=== PATIENT | male | born 1955 | race Caucasian/White ===

== ENCOUNTER 2018-10-23 02:45 | Inpatient (IN) | payer BC ==
[~2018-10-23] VITALS: Ht 175.3 cm; Wt 60.3 kg
[2018-10-23] VITALS (16 sets, daily range): BP systolic 129–174; BP diastolic 76–111
[~2018-10-23 02:45] MED LIST: AMPH30TA10 PO; BUPR-472 PO; BUPR-474 PO; CHOL200018 PO; OLAN10TA25 PO; POTA99TA6 PO
[2018-10-23] MEDS ORDERED: ACETAMINOPHEN 500 MG TAB PO ONE (06:00)
[2018-10-23] MEDS ORDERED: LIDOCAINE/SOD BICARB 8.4% SYR ID ONE (06:00)
[2018-10-23] MEDS ORDERED: ceFAZolin(*) 2GM/D5W 50ML 50 ML IVPB ONE (06:00)
[2018-10-23] MEDS ORDERED: NORMOSOL R SOLN(*) 1000 ML BAG 1,000 ML IV PRN (06:00)
[2018-10-23] MEDS ORDERED: MIDAZOLAM 2 MG/2 ML VIAL IVP PRN (06:00)
[2018-10-23] MEDS ORDERED: FAMOTIDINE 20 MG TAB PO ONE (06:00)
[2018-10-23] MEDS ORDERED: PREGABALIN 150 MG CAPSULE PO ONE (06:00)
[2018-10-23] MEDS ORDERED: DEXAMETHASONE SOD PHOS 10MG/ML ONE (06:15)
[2018-10-23] MEDS ORDERED: BACITRACIN OINT 15 GM TUBE TP ONE (06:15)
[2018-10-23] MEDS ORDERED: NS 0.9% 20 ML SDV 40 ML ONE (06:34)
[2018-10-23] MEDS ORDERED: PROPOFOL(*)1000 MG/100 ML VIAL 100 ML ONE (06:35)
[2018-10-23] MEDS ORDERED: REMIFENTANIL HCL 1 MG VIAL ONE (06:35)
[2018-10-23] MEDS ORDERED: NS(*) 0.9% 500 ML BAG 500 ML ONE (06:39)
[2018-10-23] MEDS ORDERED: fentaNYL CITR 250 MCG/5 ML AMP ONE (06:43)
[2018-10-23] MEDS ORDERED: LIDOCAINE MPF 1% 5 ML VIAL ONE (06:44)
[2018-10-23] MEDS ORDERED: KETAMINE HCL 200 MG/20 ML MDV ONE (06:44)
[2018-10-23] MEDS ORDERED: ONDANSETRON 4 MG/2 ML VIAL ONE (06:44)
[2018-10-23] MEDS ORDERED: ePHEDrine 25 MG/5 ML DISP.SYR IVP ONE (08:02)
[2018-10-23] MEDS ORDERED: NS 0.9% 20 ML SDV 20 ML ONE (08:08)
[2018-10-23] MEDS ORDERED: ceFAZolin 1 GM VIAL ONE (08:12)
[2018-10-23] MEDS ORDERED: VASOPRESSIN 20 UNIT/ML VIAL ONE (08:16)
[2018-10-23] MEDS ORDERED: PROPOFOL EMUL(*) 10MG/ML 20 ML 20 ML ONE (08:28)
[2018-10-23] MEDS ORDERED: EPINEPHrine HCL 1 MG/ML AMP ONE (08:43)
[2018-10-23] MEDS ORDERED: VANCOMYCIN 1 GM VIAL ONE (09:51)
[2018-10-23] MEDS ORDERED: fentaNYL CITR 100 MCG/2 ML AMP ONE (11:06)
--- NOTE | 2018-10-23 11:07 | RADIOLOGY IMAGING REPORT ---
FACILITY: [facility] - [place] PATIENT NAME: iRgo Naidu : 1955 MR: [id number] V: [id number] EXAM DATE: ORDERING PHYSICIAN: MARLON BRICE TECHNOLOGIST: Location: [facility] [place] Patient: Rigo Naidu : 1955 Visit/Account:[id number] Date of Sevice: 10/23/2018 CERVICAL SPINE 2 OR 3 VIEW Indication: POSTERIOR CERVICAL FUSION C3-T1 Comparison: None. Findings: Intraoperative images from a cervical spine surgery are available. Final image demonstrate s posterior instrumentation and fusion hardware from C3 through C7. IMPRESSION: Postoperative changes with cervical fusion hardware identified. Report Dictated By: Catracho Daly at 10/23/2018 10:58 AM Report E-Signed By: Catracho Daly at 10/23/2018 10:59 AM WSN:[id number]
[2018-10-23] MEDS ORDERED: MAGNESIUM HYDROXIDE* 30ML UDCP PO PRN (11:10)
[2018-10-23] MEDS ORDERED: ONDANSETRON 4 MG/2 ML VIAL IVP PRN (11:10)
[2018-10-23] MEDS ORDERED: ACETAMINOPHEN(*)1000 MG/100 ML 100 ML IVPB PRN (11:10)
[2018-10-23] MEDS ORDERED: BISACODYL 10 MG SUPP PR PRN (11:10)
[2018-10-23] MEDS ORDERED: FLUSH 10 ML SYR IVP PRN (11:10)
[2018-10-23] MEDS ORDERED: ACETAMINOPHEN 500 MG TAB PO PRN (11:10)
[2018-10-23] MEDS ORDERED: BENZOCAINE/MENTHOL 1 EACH LOZG PO PRN (11:10)
[2018-10-23] MEDS ORDERED: LR(*) 1000 ML BAG 1,000 ML IV PRN (11:10)
[2018-10-23] MEDS ORDERED: diphenhydrAMINE 25 MG CAP PO PRN (11:10)
[2018-10-23] MEDS ORDERED: DIAZEPAM 5 MG TAB PO PRN (11:10)
--- NOTE | 2018-10-23 11:23 | OPERATIVE REPORT 1 ---
EVENT DATE: October 23, 2018 SURGEON: Rashard Grove MD ANESTHESIOLOGIST: Aric Edwards MD ANESTHESIA: General endotracheal. MATERIALS PLANNING ANALYST: Marcos Liu PA-C and Ji Quiroz PA-C. 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 PROCEDURE PERFORMED C3-C6 cervical laminectomy with C3-C7 posterior lateral instrumented fusion. IV FLUIDS 2100 cc's. ESTIMATED BLOOD LOSS 60 cc's. IMPLANTS USED 1. 3.5 mm x 14 mm lateral mass screws from [employer] x10. 2. Connecting rods from [employer] x2. 3. Locking caps from [employer] x10. SPECIMENS None. DRAINS 7 mm flat Alen-Harley drain to the posterior neck. COMPLICATIONS None. DISPOSITION Post-Anesthesia Care Unit. INDICATIONS Mr. Naidu is a 62-year old gentleman who presented to my clinic last year with a complaint of low back and right hip and leg pain. At the time of our evaluation of him, he was found to have symptoms consistent with cervical myelopathy including sustained clonus on the right and 8 or more beats of clonus on the left, strongly positive Rayo's signs bilaterally and hyperactive deep tendon reflexes. He was, therefore, sent for a cervical spine MRI which, indeed, revealed severe compression of the spinal cord, C3-C4 and C4-C5 with an anterolisthesis at C4-5 and thick ligamentum flavum all the way down to the C6- C7 level. At this point in time, we altered our treatment plan, which originally was going to be directed at this lumbar problems and I explained to him that it was much more important to take care of his myelopathy first. He voiced an understanding. We, therefore, scheduled him for the C3-C6 laminectomy and C3-C7 posterior lateral instrumented fusion. Prior to surgery, I explained in detail to the patient the possible risks of surgery. These risks include bleeding, infection, damage to surrounding structures, nerve root injury, spinal cord injury, spinal fluid leak, meningitis, , blindness, sexual dysfunction, autonomic nervous system dysfunction and other unforeseen medical and surgical complications. An understanding that in general spinal surgery is more predictive at improving extremity discomfort than axial spine pain was stressed and more importantly in this case it was stressed that the purpose of the procedure was to prevent step- multani deterioration of his myelopathy rather than giving him improvement of his motor function. DESCRIPTION OF PROCEDURE On the date of surgery, the patient was met in the preoperative hold area and all questions were answered. The operative site was identified and marked by myself. The patient was brought in good condition to the operating room and after initiation of anesthesia, placement of an arterial line and baseline neurophysiologic monitoring, he was placed in a Cortney headrest and turned into the prone position on an OR table. All bony protuberances and soft tissues were well padded in the standard fashion. Care was taken to maintain appropriate perfusion pressures during anesthesia. Preoperative antibiotics were administered according to the appropriate timing schedule. At the conclusion of the procedure, sponge and needle counts were correct x2. Once we turned the patient into the prone position, repeat motors were run by our neurophysiologic windows deployment technician. There was no change in neurophysiologic monitoring with positioning. A final time-out was undertaken by members of the operating team to confirm correct patient, correct levels and correct surgery. The patient was then prepped and draped in the standard sterile orthopedic fashion and a vertical incision was made in the posterior neck overlying the intended surgical levels. Sharp dissection was carried out down to the ligamentum nuchae, which was divided down the midline. Soft tissues were elevated off the posterior elements in a subperiosteal manner and a lateral radiograph was obtained to confirm appropriate spinal levels. I cleared soft tissues all the way out to the lateral aspect of the lateral masses, exposing lateral masses of C3, C4, C5, C6 and C7. We then used a 2 mm ball-tipped, high-speed bur to create general passenger agent holes in a modified Magerl technique using an up and out trajectory to avoid damage to the vertebral artery. These holes were then drilled with a 14 mm drill. Attention was then turned to the laminectomy portion of the procedure. A rongeur was used to remove the inner spinous ligaments between C2 and C3 and between C6 and C7. A high-speed bur was then used to create troughs bilaterally at the junction of the lateral masses and the base of the lamina. Towel clamps were attached to the C3 and C6 spinous processes and upward pressure was applied as the troughs were created. Once all bony resection was completed, the spinous processes were gently elevated and removed in one piece. This provided significant decompression of the cord and dural pulsations could be visualized. #1 and #2 Kerrison rongeurs were used to further complete the laminectomy and ensure no focal compression on the cord. The superior aspect of the C7 lamina was undercut and all redundant ligamentum flavum removed. The nerve hook was used to check the lateral gutters and ensure that no ongoing bony compression was present. 3.5 mm x 14 mm screws were then placed bilaterally at C3, C4, C5, C6 and C7 in the previously prepared holes. A petra was then cut to the appropriate length and contoured appropriately. The petra was placed in the tulips bilaterally and while I held the Cortney headrest, our anesthesia colleague then loosened the Cortney and I was able to bring the patient into significant lordosis and apply the remainder of the caps in the lateral mass screws. These were tightened down and then finally tightened. The head was then flexed again to allow for appropriate placement of bone graft. The wound was irrigated with copious sterile saline solution and a high-speed bur was then used to decorticate the lateral masses out lateral to the lateral mass screws. A combination of milled local bone and demineralized bone matrix was then packed into those lateral gutters overlying the lateral masses and packed into the decorticated facets as well. A 7 mm flat Alen-Harley drain was then placed and the wound was closed in layers using interrupted sutures for the ligamentum nuchae, inverted interrupted sutures for the subcutaneous tissue and then a running locking skin stitch. Sponge and needle counts were correct x2. POSTOPERATIVE CARE PLAN Mr. Naidu will remain in the hospital until he has a decrease in drainage and we can pull his drain. Once he meets discharge criteria and passes physical therapy, he will be discharged home with instructions to follow up in two weeks for examination and wound check. BRITTNY
[2018-10-23] MEDS: oxyCODONE HCL 5 MG CAP PO PRN ×2 (12:37→19:01)
[2018-10-23] MEDS: HYDROmorphone HCL 2 MG/ML SDV IVP PRN ×2 (13:02→20:02)
[2018-10-23] MEDS: ceFAZolin(*) 2GM/D5W 50ML 50 ML IVPB SCH ×2 (16:43→23:32)
--- NOTE | 2018-10-23 16:51 | NUR ---
Physical Therapy Impression PT eval complete. Pt able to perform bed mobility with appropriate log roll technique with SBA and stand at EOB with CGA. Physical Therapy Goals 1. Mod I bed mobility via log roll. 2. Mod I transfers. 3. Mod I gait x 150' with appropriate assistive device. 4. CGA ascend/descend 4 stairs with B rails. Patient's Goals
--- NOTE | 2018-10-23 19:35 | Hospitalist Consultation ---
History of Present Illness Requesting Physician Dr Voss Reason for Consult Medical management comorbidities Chief Complaint Cervical laminectomy and fusion History of Present Illness 62M admitted after cervical laminectomy and fusion. Tolerated the procedure well but was given pain medication after procedure which limited his ability to provide additional information about his medical history. PMHx includes ADHD, tobacco abuse, depression. History Unable To Obtain Past Medical: Noted in HPI Home Meds Reported Medications Amphet Asp/Amphet/D-Amphet (ADDERALL 30 MG TABLET) 30 Mg Tablet, 30 MG PO TID 10/16/18 Cholecalciferol (Vitamin D3) (VITAMIN D) 2,000 Unit Tablet, 2000 UNIT PO QPM 10/16/18 Potassium Gluconate (POTASSIUM) 99 Mg Tablet, 2 TAB PO QHS 10/16/18 Bupropion Hcl (WELLBUTRIN XL) 300 Mg Tab.er.24h, 300 MG PO QDAY, TAB 10/16/18 Bupropion Hcl (WELLBUTRIN XL) 150 Mg Tab.er.24h, 150 MG PO QDAY, TAB 10/16/18 Olanzapine (OLANZAPINE) 10 Mg Tablet, 40 MG PO HS 10/16/18 Allergies: Coded Allergies: Sulfa (Sulfonamide Antibiotics) (Verified Allergy, Intermediate, RASH, 10/16/18) Hx Smoking: Yes (1 09/06 PPD X 52 YRS) Smoking Status: Current: Every Day Smoker Caffeine Intake: Coffee Caffeine/Cups Per Day: RARELY Hx Alcohol Use: Yes Hx Substance Use Disorder: No Social Drug Use: Never History of IV Drug Use: No Review of Systems All Systems Reviewed/Normal: Yes, Except as Noted Exam Vital Signs Vital Signs Date Time Temp Pulse Resp B/P (MAP) Pulse Ox O2 Delivery O2 Flow Rate FiO2 10/23/18 17:00 84 149/80 (103) 99 10/23/18 15:25 97.9 16 Nasal Cannula 3.0 General Appearance: No Acute Distress, Afebrile Neuro: No Gross deficits ENT: Normal Neck: Other (c-collar and post operative dressing) Cardiovascular: Normal Rhythm & Peripheral Pulses Respiratory: No Respiratory Distress GI: Abd Soft and Non-Tender Extremities: Soft and Non Tender, Warm, Pulses, Perfused; No Edema Integumentary: Skin Intact without Lesion / Mass Assessment and Plan Problems: (1) Cervical pain Assessment & Plan: Post laminectomy and fusion. Per Ortho Dr Bipin. (2) Tobacco abuse Assessment & Plan: Smokes 1.5 ppd. Will address nicotine replacement if issues arise. (3) Depression Assessment & Plan: Continue Wellbutrin, olanzapine was above usual dose and decreased to normal dose range until able to verify. (4) ADHD Assessment & Plan: On Adderall and possibly prescribed Wellbutrin for ADHD. Wellbutrin continued Adderall on hold while inpatient. Venous Thromboembolism Antithrombotics Is Pt On Any Antithrombotics?: No Exam Sepsis Risk: No Definite Risk BEAN BRANDAN PEÑA DO Oct 23, 2018 19:35
[2018-10-23] MEDS: DOCUSATE SODIUM 100 MG CAP PO SCH (20:45)
[2018-10-23] MEDS: OLANZapine 5 MG TAB PO SCH (20:45)
[2018-10-23] MEDS ORDERED: buPROPion XL 150 MG TABCR PO SCH (21:00)
[2018-10-23] MEDS: APAP/HYDROCODONE 325/5 TAB PO PRN (23:35)
[2018-10-24] VITALS: BP 149/82
[2018-10-24 04:38] VITALS: BP 127/66
[2018-10-24] MEDS: APAP/HYDROCODONE 325/5 TAB PO PRN ×3 (06:19→16:29)
[2018-10-24] MEDS: ceFAZolin(*) 2GM/D5W 50ML 50 ML IVPB SCH (07:17)
[2018-10-24 08:00] VITALS: BP 126/83
--- NOTE | 2018-10-24 08:46 | RADIOLOGY IMAGING REPORT ---
FACILITY: [facility] - [place] PATIENT NAME: Rigo Naidu : 1955 MR: [id number] V: [id number] EXAM DATE: ORDERING PHYSICIAN: MARLON BRICE TECHNOLOGIST: Location: [facility] - [place] Patient: Rigo Naidu : 1955 Visit/Account:[id number] Date of Sevice: 10/24/2018 CERVICAL SPINE 2 OR 3 VIEW Indication: Postoperative fusion. Comparison: None. Findings: There are postoperative changes with posterior instrumentation fusion hardware at C3, C4, C 5, C6, and C7. The alignment is maintained. Vertebral body heights are normal. IMPRESSION: New postoperative changes with posterior instrumentation and fusion hardware C3-C7. Report Dictated By: Catracho Daly at 10/24/2018 8:39 AM Report E-Signed By: Catracho Daly at 10/24/2018 8:41 AM WSN:[id number]
--- NOTE | 2018-10-24 09:55 | NUR ---
Physical Therapy Impression Pt reports pain, but agreeable to therapy session after encouragement. Burt for bed mobility with good log roll technique. SBA/Burt for transfers with RW. Ambulation x150' with RW and SBA, SpO2 WNL on 3L O2. PT instruction for asc/desc 5 stairs with railing, pt with excellent re-demonstration. PT recommends that pt utilize RW upon d/c from hospital, pt agreeable. PT instructed pt in pat/doff of c collar in front of mirror. Pt safe to d/c home from a mobility stand point when medically appropriate. Physical Therapy Goals 1. Mod I bed mobility via log roll. 2. Mod I transfers. 3. Mod I gait x 150' with appropriate assistive device. 4. CGA ascend/descend 4 stairs with B rails. Patient's Goals
[2018-10-24] MEDS: DOCUSATE SODIUM 100 MG CAP PO SCH ×2 (10:20→20:44)
[2018-10-24 10:46] VITALS: Ht 175.3 cm; Wt 60.3 kg
--- NOTE | 2018-10-24 11:04 | Hospitalist Progress Note ---
Subjective Progress Notes Subjective He has no complaints this morning. He had no acute events overnight. Patient Complains of: Cardiovascular: No: Chest Pain Respiratory: No: Shortness of Breath Physical Exam Vital Signs Date Time Temp Pulse Resp B/P (MAP) Pulse Ox O2 Delivery O2 Flow Rate FiO2 10/24/18 10:24 92 Nasal Cannula 1.0 10/24/18 08:00 94 126/83 (97) 10/24/18 04:38 98.0 16 Intake and Output 10/23/18 23:59 Intake Total 2600 ml Output Total 1560 ml Balance 1040 ml Intake Oral 0 ml IV Total 2600 ml Output Urine Total 1350 ml Drainage Total 210 ml # Voids 3 General Appearance: Alert, Awake, No Acute Distress, Afebrile Cardiovascular: Regular Rate and Rhythm Respiratory: No Respiratory Distress, Clear to Auscultation Psych: Alert & Oriented X3, Appropriate Mood & Affect Assessment and Plan Problems: (1) Cervical pain Assessment & Plan: Post laminectomy and fusion. Per Ortho Dr Grove. (2) Tobacco abuse Assessment & Plan: Smokes 1.5 ppd. Will address nicotine replacement if issues arise. (3) Depression Assessment & Plan: Continue Wellbutrin, olanzapine was above usual dose and decreased to normal dose range until able to verify. (4) ADHD Assessment & Plan: On Adderall and possibly prescribed Wellbutrin for ADHD. Wellbutrin continued Adderall on hold while inpatient. Exam Sepsis Risk: No Definite Risk KIMBERLY VALENCIA Oct 24, 2018 11:04
[2018-10-24 15:23] VITALS: BP 151/91
[2018-10-24 19:26] VITALS: BP 148/94
[2018-10-24] MEDS: oxyCODONE HCL 5 MG CAP PO PRN (19:49)
[2018-10-24] MEDS: OLANZapine 5 MG TAB PO SCH (20:44)
[2018-10-25 01:09] VITALS: BP 145/85
[2018-10-25] MEDS: APAP/HYDROCODONE 325/5 TAB PO PRN ×5 (01:09→20:25)
[2018-10-25 05:33] VITALS: BP 135/85
[2018-10-25 06:53] VITALS: BP 132/84
[2018-10-25] MEDS: DOCUSATE SODIUM 100 MG CAP PO SCH ×2 (09:42→20:25)
[2018-10-25] MEDS: guaiFENesin 600 MG TABCR PO SCH ×2 (09:42→20:25)
[2018-10-25] MEDS: buPROPion XL 150 MG TABCR PO SCH (09:42)
--- NOTE | 2018-10-25 11:24 | Hospitalist Progress Note ---
Subjective Progress Notes Subjective He was admitted after neck surgery. He has decreased fatigue today, but still has significant fatigue after Lortab. Patient Complains of: Cardiovascular: No: Chest Pain Respiratory: No: Shortness of Breath Physical Exam Vital Signs Date Time Temp Pulse Resp B/P (MAP) Pulse Ox O2 Delivery O2 Flow Rate FiO2 10/25/18 06:53 97.8 100 132/84 (100) 90 10/25/18 05:33 20 Nasal Cannula 1.0 Intake and Output 10/25/18 06:59 Intake Total 1500 ml Output Total 1610 ml Balance -110 ml Intake Oral 1500 ml Output Urine Total 1445 ml Drainage Total 165 ml # Voids 7 General Appearance: Alert, Awake, No Acute Distress, Afebrile Neuro: No Gross deficits Cardiovascular: Regular Rate and Rhythm Respiratory: No Respiratory Distress, Other (diminished throughout) Psych: Alert & Oriented X3, Appropriate Mood & Affect Assessment and Plan Problems: (1) Cervical pain Assessment & Plan: Post laminectomy and fusion. Per Ortho Dr Grove. (2) Tobacco abuse Assessment & Plan: Smokes 1.5 ppd. Will address nicotine replacement if issues arise. (3) ADHD Assessment & Plan: On Adderall. Adderall on hold while inpatient. (4) Chronic fatigue disorder Status: Chronic Assessment & Plan: Patient is on chronic treatment with Wellbutrin. Continue. (5) Depression Status: Chronic Assessment & Plan: He is on chronic treatment with Zyprexa. Continue. Exam Sepsis Risk: No Definite Risk KIMBERLY VALENCIA Oct 25, 2018 11:24
--- NOTE | 2018-10-25 11:28 | NUR ---
Physical Therapy Impression Pt attempted supine>sit with use of bed elevated with SBA. Pt kept returning to semi-supine position stating the back of his head hurt. Pt finally able to sit at EOB and stand with CGA to side-step higher into bed and instructed to use log roll technique for sit>supine. Pt encouraged to ambulate to bathroom instead of using urinal to increase activity level during day. Pt requesting pain medication, nurse notified of both pain medication request and recommendation to ambulate to bathroom more frequently. Physical Therapy Goals 1. Mod I bed mobility via log roll. 2. Mod I transfers. 3. Mod I gait x 150' with appropriate assistive device. 4. CGA ascend/descend 4 stairs with B rails. Patient's Goals
[2018-10-25 14:57] VITALS: BP 134/90
[2018-10-25 18:33] VITALS: BP 131/83
[2018-10-25] MEDS: OLANZapine 5 MG TAB PO SCH (20:25)
[2018-10-26 00:29] VITALS: BP 120/81
[2018-10-26] MEDS: APAP/HYDROCODONE 325/5 TAB PO PRN ×2 (00:31→07:03)
[2018-10-26 06:18] LABS: PLATELET COUNT, AUTOMATED 297 K/uL (150-450)
[2018-10-26] MEDS ORDERED: LOR5/325 PO (06:59)
[2018-10-26] MEDS ORDERED: DIA5 PO (07:00)
[2018-10-26] MEDS ORDERED: DOCU240C84 PO (07:01)
[2018-10-26 07:19] VITALS: BP 120/89
[2018-10-26] MEDS: DOCUSATE SODIUM 100 MG CAP PO SCH (08:38)
[2018-10-26] MEDS: guaiFENesin 600 MG TABCR PO SCH (08:38)
[2018-10-26] MEDS: buPROPion XL 150 MG TABCR PO SCH (08:39)
--- NOTE | 2018-10-26 11:34 | Hospitalist Progress Note ---
Subjective Progress Notes Subjective He has no complaints this morning. He reports the fatigue is much better today. He would like to go home. Patient Complains of: Cardiovascular: No: Chest Pain Respiratory: No: Shortness of Breath Physical Exam Vital Signs Date Time Temp Pulse Resp B/P (MAP) Pulse Ox O2 Delivery O2 Flow Rate FiO2 10/26/18 07:19 89 Room Air 10/26/18 07:19 98.1 115 16 120/89 (99) 10/25/18 18:33 1.0 Intake and Output 10/26/18 06:59 Intake Total 600 ml Output Total 95 ml Balance 505 ml Intake Oral 600 ml Drainage Total 95 ml # Voids 2 General Appearance: Alert, Awake, No Acute Distress, Afebrile Neuro: No Gross deficits Cardiovascular: Regular Rate and Rhythm Respiratory: No Respiratory Distress, Clear to Auscultation Psych: Alert & Oriented X3, Appropriate Mood & Affect Result Diagram: 10/26/18 0540 Assessment and Plan Problems: (1) Cervical pain Assessment & Plan: Post laminectomy and fusion. Per Ortho Dr Grove. (2) Tobacco abuse Assessment & Plan: Smokes 1.5 ppd. Will address nicotine replacement if issues arise. (3) ADHD Assessment & Plan: On Adderall. Adderall on hold while inpatient. (4) Chronic fatigue disorder Status: Chronic Assessment & Plan: Patient is on chronic treatment with Wellbutrin. Continue. (5) Depression Status: Chronic Assessment & Plan: He is on chronic treatment with Zyprexa. Continue. Exam Sepsis Risk: No Definite Risk KIMBERLY VALENCIA NEEDLE MAKER Oct 26, 2018 11:34
== END 2018-10-26 09:56 | disposition home or self-care (01) | DRG 473 ==
LOC: OR 02:45 → MED 12:20
PROVIDERS: ADMIT Orthopaedic Surgery; ATTEND Orthopaedic Surgery
PROC: 00NW0ZZ Release Cervical Spinal Cord, Open Approach (ICD-10-PCS; 2018-10-23)
PROC: 0RG2071 Fusion of 2 or more Cervical Vertebral Joints with Autologous Tissue Substitute, Posterior Approach, Posterior Column, Open Approach (ICD-10-PCS; principal; 2018-10-23 07:14)
DX: M50.01 Cervical disc disorder with myelopathy, high cervical region (principal); I10 Essential (primary) hypertension; F32.9 Major depressive disorder, single episode, unspecified; F90.9 Attention-deficit hyperactivity disorder, unspecified type; F17.210 Nicotine dependence, cigarettes, uncomplicated; R53.82 Chronic fatigue, unspecified; Z88.2 Allergy status to sulfonamides
CPT/HCPCS: 36415; 72020; 72040; 85025; 86850; 86900; 86901; 94667; 95940; 97162; C1713; J0171; J0690; J1100; J1170; J2001; J2250; J2405; J2704; J3010; J3370; J3490; J7040; J7050; L0120